=== PATIENT | male | born 1955 | race Caucasian/White ===

== ENCOUNTER 2018-03-21 14:20 | Observation (INO) | payer OTHER ==
[~2018-03-21] VITALS: Ht 154.9 cm; Wt 133.8 kg
[2018-03-21] MEDS ORDERED: EPINEPHRINE 0.3 MG/0.3 ML PEN.INJCTR IM STA (14:32)
[2018-03-21] MEDS ORDERED: FAMOTIDINE 20 MG/2 ML VIAL IV STA (14:32)
[2018-03-21] MEDS ORDERED: METHYLPREDNISOLONE SOD SUCC 125 MG/2ML VIAL ONE (14:36)
[2018-03-21] MEDS ORDERED: DIPHENHYDRAMINE HCL INJ 50 MG/ML VIAL ONE (14:36)
[2018-03-21] MEDS ORDERED: FAMOTIDINE 20 MG/2 ML VIAL IV ONE (14:37)
[2018-03-21 14:43] LABS: BASOPHILS % 0.4 % (0.0-1.0); EOSINOPHILS % 0.8 % (0.0-6.0); HEMATOCRIT 52.6 % (38.2-49.6); HEMOGLOBIN 18.3 g/dL (14.0-18.0); LYMPHOCYTES # (AUTO) 2.4 (1.0-3.2); LYMPHOCYTES % 47.3 % (18.0-39.1); MEAN CORPUSCULAR HEMOGLOBIN 31.1 pg (28-32); MEAN CORPUSCULAR HGB CONC 34.8 g/dL (31-35); MEAN CORPUSCULAR VOLUME 89.3 fL (81-99); MONOCYTES # (AUTO) 0.2 (0.2-0.8); MONOCYTES % 4.8 % (4.4-11.3); NEUTROPHILS # (AUTO) 2.3 (2.1-6.9); NEUTROPHILS % 45.7 % (38.7-80.0); PLATELET COUNT 179 x10e3/uL (140-360); RED BLOOD COUNT 5.89 x10e6/uL (4.3-5.7); RED CELL DISTRIBUTION WIDTH 13.3 % (11.7-14.4)
[2018-03-21] MEDS ORDERED: METHYLPREDNISOLONE SOD SUCC 125 MG/2ML VIAL IV ONE (14:45)
[2018-03-21] MEDS ORDERED: DIPHENHYDRAMINE HCL INJ 50 MG/ML VIAL IV ONE (14:45)
[2018-03-21 14:55] LABS: INR 0.89; PARTIAL THROMBOPLASTIN TIME 26.9 seconds (23.8-35.5); PROTHROMBIN TIME 12.9 seconds (11.9-14.5)
[2018-03-21 15:02] LABS: ALANINE AMINOTRANSFERASE 41 IU/L (0-55); ALBUMIN 3.8 g/dL (3.5-5.0); ALBUMIN/GLOBULIN RATIO 1.3 (0.8-2.0); ALKALINE PHOSPHATASE 55 IU/L (40-150); ANION GAP 14.3 mmol/L (8-16); BLOOD UREA NITROGEN 17 mg/dL (7-26); BUN/CREATININE RATIO 15 (6-25); CALCIUM 9.8 mg/dL (8.4-10.2); CARBON DIOXIDE 23 mmol/L (22-29); CHLORIDE 104 mmol/L (98-107); CREATINE KINASE 75 IU/L (30-200); CREATININE, SERUM 1.16 mg/dL (0.72-1.25); EST GLOMERULAR FILTRATION RATE > 60 ML/MIN (60-); GLUCOSE 133 mg/dL (74-118); POTASSIUM 4.3 mmol/L (3.5-5.1); SODIUM 137 mmol/L (136-145)
[2018-03-21] MEDS: ALBUTEROL/IPRATROPIUM 3 ML NEB NEB SCH ×3 (15:13→23:30)
[2018-03-21] MEDS ORDERED: ASPIRIN 81 MG CHEW TAB PO ONE (15:15)
--- NOTE | 2018-03-21 15:45 | Diagnostic Imaging Report ---
EXAM: XR CHEST 1 VIEW DATE: 03/21/2018 2:31 PM INDICATION: Pain COMPARISON: None FINDINGS: Lines and Tubes: None Heart and Mediastinum: Heart upper limits of normal. Right peritracheal density statistically confluent vascular structures. Lungs and Pleura: No significant pleural effusion, pneumothorax, or focal consolidation. Minimal opacities lung bases suggest atelectasis. Bones and Soft Tissues: No acute findings. IMPRESSION: 1. No acute cardiopulmonary findings. Signed by: Dr. Chucky Elias MD on 03/21/2018 3:42 PM
[2018-03-21] MEDS ORDERED: HUMALOG100 UNIT/1 SQ (18:34)
[2018-03-21] MEDS ORDERED: PRAVASTATIN SOD40 MG PO (18:34)
[2018-03-21] MEDS ORDERED: TAMSULOSIN HCL0.4 MG PO (18:34)
[2018-03-21] MEDS ORDERED: CARVEDILOL25 MG PO (18:34)
[2018-03-21] MEDS ORDERED: METFORMIN HCL1000 MG PO (18:34)
[2018-03-21] MEDS ORDERED: ELIQUIS PO (18:34)
[2018-03-21] MEDS ORDERED: DIOVAN160 MG PO (18:34)
[2018-03-21] MEDS ORDERED: POTASSIUM CITR10 MEQ PO (18:34)
[2018-03-21] MEDS ORDERED: LANTUS 3ML100 UNITS/ SQ (18:34)
[2018-03-21] MEDS ORDERED: TRULICITY SQ (18:34)
[2018-03-21 19:59] VITALS: BP 133/92
[2018-03-21] MEDS ORDERED: CARVEDILOL 12.5 MG TAB ONE (22:25)
[2018-03-21] MEDS: CARVEDILOL 12.5 MG TAB PO SCH (22:30)
[2018-03-21] MEDS ORDERED: NON-FORMULARY MEDICATION ([Trulicity] 1.5 MG) SQ SCH (22:30)
[2018-03-21] MEDS ORDERED: METFORMIN HCL 500 MG TAB PO ONE (23:45)
[2018-03-22] VITALS: BP 112/68
[2018-03-22 00:21] LABS: CLARITY,URINE CLEAR (CLEAR); COLOR,URINE YELLOW (YELLOW); KETONES,URINE 1+ (NEGATIVE); LEUKOCYTE ESTERASE ,URINE NEGATIVE (NEGATIVE); NITRITE,URINE NEGATIVE (NEGATIVE); PROTEIN,URINE DIPSTICK 1+ (NEGATIVE)
[2018-03-22 00:22] LABS: BACTERIA,URINE RARE /HPF; BILIRUBIN,URINE NEGATIVE (NEGATIVE); EPITHELIAL CELLS,URINE RARE /LPF; MUCUS,URINE FEW (RARE); RBC,URINE 0-5 /HPF (0-5); URINE UROBILINOGEN 0.2 mg/dL (0.2 - 1); WBC,URINE (MAN) 0-5 /HPF (0-5)
[2018-03-22 00:59] VITALS: BP 112/68
[2018-03-22 01:00] VITALS: BP 112/68
[2018-03-22 01:02] VITALS: BP 112/68
[2018-03-22 01:28] LABS: CREATINE KINASE 58 IU/L (30-200)
[2018-03-22] MEDS: ALBUTEROL/IPRATROPIUM 3 ML NEB NEB SCH ×2 (03:15→07:58)
[2018-03-22 05:44] LABS: ALBUMIN 3.2 g/dL (3.5-5.0); ALBUMIN/GLOBULIN RATIO 1.2 (0.8-2.0); ANION GAP 17.7 mmol/L (8-16); CREATININE, SERUM 1.23 mg/dL (0.72-1.25); POTASSIUM 4.7 mmol/L (3.5-5.1)
[2018-03-22 06:01] LABS: CREATINE KINASE 68 IU/L (30-200)
[2018-03-22 07:05] LABS: BASOPHILS % 0.2 % (0.0-1.0); HEMATOCRIT 46.3 % (38.2-49.6); HEMOGLOBIN 15.9 g/dL (14.0-18.0); LYMPHOCYTES # (AUTO) 1.8 (1.0-3.2); LYMPHOCYTES % 15.1 % (18.0-39.1); MEAN CORPUSCULAR HEMOGLOBIN 31.2 pg (28-32); MEAN CORPUSCULAR HGB CONC 34.3 g/dL (31-35); MEAN CORPUSCULAR VOLUME 90.8 fL (81-99); MONOCYTES # (AUTO) 0.7 (0.2-0.8); MONOCYTES % 5.8 % (4.4-11.3); NEUTROPHILS # (AUTO) 9.4 (2.1-6.9); NEUTROPHILS % 78.5 % (38.7-80.0); PLATELET COUNT 157 x10e3/uL (140-360); RED CELL DISTRIBUTION WIDTH 13.2 % (11.7-14.4)
[2018-03-22 07:53] VITALS: BP 130/68
[2018-03-22] MEDS ORDERED: METFORMIN HCL 500 MG TAB PO SCH (08:00)
[2018-03-22] MEDS ORDERED: INSULIN LISPRO 100 UNIT/1 ML 3ML VIAL SQ SCH (08:00)
[2018-03-22] MEDS: CARVEDILOL 12.5 MG TAB PO SCH (08:34)
[2018-03-22] MEDS ORDERED: TAMSULOSIN HCL 0.4 MG CAP PO SCH (09:00)
[2018-03-22] MEDS ORDERED: ELIQUIS PO SCH (09:00)
[2018-03-22] MEDS ORDERED: POTASSIUM CITRATE 10 MEQ TAB PO SCH (09:00)
[2018-03-22] MEDS ORDERED: VALSARTAN 160 MG TAB PO SCH (09:00)
--- NOTE | 2018-03-22 10:49 | Discharge Summary ---
The patient was in observation. FINAL DIAGNOSES 1. Allergic reaction to bee sting. 2. Chest pain and shortness breath secondary to allergic reaction. HISTORY: A 62-year-old male came in because he was bitten by bees when he was putting some pollen in the bee hive area. The patient was bitten approximately 20-30 times. After that, he tried to run away from the bees, and the bees chased the patient down. He then developed shortness of breath and chest pain. He was given multiple medications in the emergency room. He is doing much better now. Cardiac enzymes are negative. Chest x-ray unremarkable. The patient will discharge home today with prednisone 5 mg daily for 5 days. The patient will follow up with his family doctor, Dr. Esther Hampton as needed. The patient is otherwise stable and discharged home today. Job#: [id number] YESICA
[2018-03-22] MEDS ORDERED: INSULIN DETEMIR 100 UNIT/ML PEN SQ SCH (21:00)
[2018-03-22] MEDS ORDERED: PRAVASTATIN 20 MG TAB PO SCH (21:00)
--- OUTSIDE RECORDS SUMMARY | 2018-03-27 12:41 | XMS REPORT ---
Author Author Zay Spence Organization eClinicalWorks Address Unknown Phone Unavailable Care Team Providers Care Corn Picker Name Role Phone Zay Spence CP Unavailable Encounters Encounter Location Date Follow-Up Zay Spence [place], [place] Jun 10, 2015 Follow-Up Zay Sp[place], [place] December 02, 2015 refill Zay Spence [place], [place] December 21, 2015 Problems Problem Type Condition ICD-9 Code Onset Dates Condition Status Problem Benign hypertensive heart disease without heart failure 402.10 Active Problem Atrial flutter 427.32 Active Problem Morbid obesity 278.01 Active Problem Diabetes mellitus type II 250.00 Active Problem Mixed hyperlipidemia 272.2 Active Problem Typical atrial flutter I48.3 Active Problem Hypertensive heart disease without heart failure I11.9 Active 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 Are you a: former smoker quit in 2002December 03, 2015 Marital Status: . December 03, 2015 Do you drink alcohol? . Status: Yes moderately/weekends December 03, 2015 Summary Purpose eClinicalWorks Submission
--- OUTSIDE RECORDS SUMMARY | 2018-03-27 12:41 | XMS REPORT ---
Author Author Zay Spence [facility] eClinicalWorks Address Unknown Phone Unavailable Care Team Providers Care Copy Operator Name Role Phone Zay Spence Unavailable Allergies, Adverse Reactions, Alerts Substance Reaction Event Type Lyrica Info Not Available Drug Allergy Problems Problem Type Condition Code Onset Dates Condition Status Problem Mixed hyperlipidemia 272.2 Active Assessment Body mass index (BMI) 40.0-44.9, adult Z68.41 Active Problem Diabetes mellitus type II 250.00 Active Assessment Morbid (severe) obesity due to excess calories E66.01 Active Problem Typical atrial flutter I48.3 Active Problem Mixed hyperlipidemia E78.2 Active Problem Hypertensive heart disease without heart failure I11.9 Active Problem Gross hematuria R31.0 Active Problem Body mass index (BMI) 40.0-44.9, adult Z68.41 Active Assessment Mixed hyperlipidemia E78.2 Active Assessment Type 2 diabetes mellitus with diabetic peripheral angiopathy without gangrene E11.51 Active Problem Dyspnea, unspecified R06.00 Active Assessment Gross hematuria R31.0 Active Problem Type 2 diabetes mellitus with diabetic peripheral angiopathy without gangrene E11.51 Active Problem Morbid (severe) obesity due to excess calories E66.01 Active Problem [facility] (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 Z79.01 Active Problem Peripheral vascular disease, unspecified I73.9 Active Assessment Hypertensive heart disease without heart failure I11.9 Active Assessment Typical atrial flutter I48.3 Active 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 Assessment Peripheral vascular disease, unspecified I73.9 Active Problem Benign hypertensive heart disease without heart failure 402.10 Active Problem Morbid obesity 278.01 Active Assessment Dyspnea, unspecified R06.00 Active Problem Atrial flutter 427.32 Active Medications Medication Code System Code Instructions Start Date End Date Status Dosage Carvedilol [facility] 20163520849 25 MG Orally twice a day (bid) Active 1 tablet Valsartan [facility] 64923925231 160 MG Orally once a day Active 1 tablet Fluticasone Propionate (Inhal) [facility] [address]-70 50 MCG/BLIST Inhalation Twice a day Active 1 puff Lantus [facility] 96794184791 100 UNIT/ML Subcutaneous Active not defined Metformin HCl [facility] 88767413325 1000 MG Orally Twice a day Active 1 tablet Pravastatin Sodium [facility] 80175322971 40 MG Orally Once a day Active 1 tablet Trulicity [facility] 31370342744 0.75 MG/0.5ML Subcutaneous Active 0.5 ml Humalog [facility] 58851876767 100 UNIT/ML Subcutaneous Active not defined Potassium Citrate NDC 0 5 MEQ Orally Active not defined Eliquis [facility] 10404523500 2.5 MG Orally twice a day (bid) Active 1 tablet Tamsulosin HCl [facility] 44293945210 0.4 MG Orally Once a day Active 1 capsule 30 minutes after the same meal each day Vital Signs Date/Time: Aug 09, 2017 BMI 40.02 Index Weight 287 lbs Height 5ft 11in in Cardiac Monitoring Heart Rate 82 /min Blood Pressure Diastolic 80 mm Hg Blood Pressure Systolic 118 mm Hg Results No Known Results Summary Purpose eClinicalWorks Submission
--- OUTSIDE RECORDS SUMMARY | 2018-03-27 12:41 | XMS REPORT ---
Author Author Zay Spence [facility] eClinicalWorks Address Unknown Phone Unavailable Care Team Providers Care Tube Teller Name Role Phone Zay Spence CP Unavailable Allergies No Known Allergies Problems Problem Type Condition Code Onset Dates Condition Status Problem Typical atrial flutter I48.3 Active Problem Mixed hyperlipidemia E78.2 Active Problem Hypertensive heart disease without heart failure I11.9 Active Problem Gross hematuria R31.0 Active Problem Body mass index (BMI) 40.0-44.9, adult Z68.41 Active Problem Dyspnea, unspecified R06.00 Active Problem Type 2 diabetes mellitus with diabetic peripheral angiopathy without gangrene E11.51 Active Problem Morbid (severe) obesity due to excess calories E66.01 Active Problem 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 nursing (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 Z79.01 Active Problem Peripheral vascular disease, unspecified I73.9 Active Problem Benign hypertensive heart disease without heart failure 402.10 Active Problem Morbid obesity 278.01 Active Problem Mixed hyperlipidemia 272.2 Active Problem Atrial flutter 427.32 Active Problem Diabetes mellitus type II 250.00 Active Medications Medication Code System Code Instructions Start Date End Date Status Dosage Metformin HCl [facility] 71520326888 1000 MG Orally Twice a day Active 1 tablet Tamsulosin HCl [facility] 95370443878 0.4 MG Orally Once a day Active 1 capsule 30 minutes after the same meal each day Potassium Citrate NDC 0 5 MEQ Orally Active not defined Trulicity [facility] 24807570866 0.75 MG/0.5ML Subcutaneous Active 0.5 ml Carvedilol ND 31856290894 25 MG Orally twice a day (bid) Active 1 tablet Pravastatin Sodium ND 69385253770 40 MG Orally Once a day Active 1 tablet Humalog [facility] 64894988012 100 UNIT/ML Subcutaneous Active not defined Lantus ND 66010275416 100 UNIT/ML Subcutaneous Active not defined Fluticasone Propionate (Inhal) [facility] [address]-82 50 MCG/BLIST Inhalation Twice a day Active 1 puff Eliquis [facility] 47296022060 2.5 MG Orally twice a day (bid) Active 1 tablet Valsartan [facility] 44499611502 160 MG Orally once a day Active 1 tablet Results No Known Results Summary Purpose eClinicalWorks Submission
--- OUTSIDE RECORDS SUMMARY | 2018-03-27 12:41 | XMS REPORT ---
Author Author Zay Spence [facility] eClinicalWorks Address Unknown Phone Unavailable Care Team Providers Care Sucker Machine Operator Name Role Phone Zay Spence Unavailable Allergies, Adverse Reactions, Alerts Substance Reaction Event Type Lyrica Info Not Available Drug Allergy Problems Problem Type Condition Code Onset Dates Condition Status Problem Atrial flutter 427.32 Active Problem Mixed hyperlipidemia E78.2 Active Problem Morbid (severe) obesity due to excess calories E66.01 Active Problem Body mass index (BMI) 40.0-44.9, adult Z68.41 Active Assessment Gross hematuria R31.0 Active Problem 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 Z79.01 Active Assessment Morbid (severe) obesity due to excess calories E66.01 Active Assessment Body mass index (BMI) 40.0-44.9, adult Z68.41 Active Problem Gross hematuria R31.0 Active Problem Peripheral vascular disease, unspecified I73.9 Active Problem Type 2 diabetes mellitus with diabetic peripheral angiopathy without gangrene E11.51 Active Problem Typical atrial flutter I48.3 Active Problem Hypertensive heart disease without heart failure I11.9 Active Assessment 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 Z79.01 Active Assessment Peripheral vascular disease, unspecified I73.9 Active Assessment Type 2 diabetes mellitus with diabetic peripheral angiopathy without gangrene E11.51 Active Assessment Mixed hyperlipidemia E78.2 Active Problem Diabetes mellitus type II 250.00 Active Problem Mixed hyperlipidemia 272.2 Active Assessment Hypertensive heart disease without heart failure I11.9 Active Problem Benign hypertensive heart disease without heart failure 402.10 Active Assessment Typical atrial flutter I48.3 Active Problem Morbid obesity 278.01 Active Medications Medication Code System Code Instructions Start Date End Date Status Dosage Pravastatin Sodium [facility] [address]-58 40 MG Orally Once a day Active 1 tablet Carvedilol [facility] [address]-44 25 MG Orally twice a day (bid) Active 1 tablet Fluticasone Propionate (Inhal) [facility] [address]-86 50 MCG/BLIST Inhalation Twice a day Active 1 puff Valsartan [facility] [address]-00 160 MG Orally once a day Active 1 tablet Tamsulosin HCl [facility] [address]-94 0.4 MG Orally Once a day Active 1 capsule 30 minutes after the same meal each day Eliquis [facility] [address]-78 5 MG Orally twice a day (bid) Active 1/2 half tablet Farxiga [facility] [address]-07 5 MG Orally Once a day Active 1 tablet Potassium Citrate [facility] 0 5 MEQ Orally Active not defined Humalog [facility] [address]-54 100 UNIT/ML Subcutaneous Active not defined Lantus [facility] [address]-09 100 UNIT/ML Subcutaneous Active not defined Digoxin [facility] [address]-09 125 MCG Orally Once a day November 29, 2016 Inactive 1 tablet Metformin HCl [facility] [address]-72 1000 MG Orally Twice a day Active 1 tablet Trulicity [facility] [address]-35 0.75 MG/0.5ML Subcutaneous Active 0.5 ml Vital Signs Date/Time: November 29, 2016 BMI 40.68 Index Weight 300 lbs Height 6ft in Cardiac Monitoring Heart Rate 76 /min Blood Pressure Diastolic 60 mm Hg Blood Pressure Systolic 110 mm Hg Results No Known Results Summary Purpose eClinicalWorks Submission
--- OUTSIDE RECORDS SUMMARY | 2018-03-27 12:41 | XMS REPORT | Continuity of Care Document ---
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 Active Problem 08/11/2017 Zay Spence MD, LEANN Gross hematuria Active Problem 08/11/2017 Zay Spence MD, LEANN Morbid obesity due to excess calories Active Diagnosis 08/11/2017 Zay Spence MD, [place] Mixed hyperlipidemia Active Problem 08/11/2017 Zay Spence MD, LEANN Peripheral vascular disease, unspecified Active Problem 08/11/2017 Zay Spence MD, LEANN Type 2 diabetes mellitus with diabetic peripheral angiopathy without gangrene Active Diagnosis 08/11/2017 Zay Spence MD, [place] Atrial flutter Active Problem 08/11/2017 Zay Spence MD, LEANN Benign hypertensive heart disease without heart failure Active Problem 08/11/2017 Zay Spence MD, LEANN Morbid obesity Active Problem 08/11/2017 Zay Spence MD, PA Mixed hyperlipidemia Active Problem 08/11/2017 Zay Spence MD, LEANN Dyspnea, unspecified Active Problem 08/11/2017 Zay Spence MD, PA Medications Medication Details Route Status Patient Instructions Ordering Provider Order Date Source Digoxin 1 tablet Orally Active 125 MCG Orally Once a day Bebe 11/29/2016 Zay Spence MD, PA Amiodarone HCl 1 tablet Orally No Longer Active 100 MG Orally Once a day Bebe 06/10/2015 Zay Spence MD, PA Eliquis 1 tablet Orally Active 2.5 MG Orally twice a day (bid) Bebe Spence MD, LEANN Metformin HCl 1 tablet Orally Active 1000 MG Orally Twice a day Bebe Spence MD, LEANN Tamsulosin HCl 1 capsule 30 minutes after the same meal each day Orally Active 0.4 MG Orally Once a day Bebe Spence MD, LEANN Potassium Citrate not defined Orally Active 5 MEQ Orally Bebe Spence MD, LEANN Trulicity 0.5 ml Subcutaneous Active 0.75 MG/0.5ML Subcutaneous Bebe Spence MD, LEANN Carvedilol 1 tablet Orally Active 25 MG Orally twice a day (bid) Bebe Spence MD, PA Pravastatin Sodium 1 tablet Orally Active 40 MG Orally Once a day Bebe Spence MD, LEANN Humalog not defined Subcutaneous Active 100 UNIT/ML Subcutaneous Bebe Spence MD, LEANN Lantus not defined Subcutaneous Active 100 UNIT/ML Subcutaneous Bebe Spence MD, LEANN Fluticasone Propionate (Inhal) 1 puff Inhalation Active 50 MCG/BLIST Inhalation Twice a day Bebe Spence MD, PA Valsartan 1 tablet Orally Active 160 MG Orally once a day Bebe Spence MD, PA Pravastatin Sodium 1 tablet Orally Active 40 MG Orally Once a day Bebe Spence MD, PA Carvedilol 1 tablet Orally Active 25 MG Orally twice a day (bid) Bebe Spence MD, PA Valsartan 1 tablet Orally Active 160 MG Orally once a day Bebe Spence MD, LEANN Tamsulosin HCl 1 capsule 30 minutes after the same meal each day Orally Active 0.4 MG Orally Once a day Bebe Spence MD, PA Eliquis 1/2 half tablet Orally Active 5 MG Orally twice a day (bid) Bebe Spence MD, PA Farxiga 1 tablet Orally Active 5 MG Orally Once a day Bebe Spence MD, LEANN Humalog not defined Subcutaneous Active 100 UNIT/ML Subcutaneous Bebe Spence MD, PA Lantus not defined Subcutaneous Active 100 UNIT/ML Subcutaneous Bebe Spence MD, LEANN Metformin HCl 1 tablet Orally Active 1000 MG Orally Twice a day Bebe Spence MD, PA Trulicity 0.5 ml Subcutaneous Active 0.75 MG/0.5ML Subcutaneous Bebe Spence MD, PA Coreg 1 tablet with food Orally Active 12.5 MG Orally Twice a day Bebe Spence MD, PA Digoxin 1 tablet Orally Active 125 MCG Orally Once a day Bebe Spence MD, LEANN Valsartan 1 tablet Orally Active 160 MG Orally Once a day Bebe Spence MD, LEANN Amlodipine Besylate 1 tablet NA Active 5 MG Once a day Bebe Spence MD, PA Digoxin 1 tablet NA Active 0.125MG Once a day Bebe Spence MD, PA Metformin HCl 1 tablet Orally Active 500 MG Orally Twice a day Bebe Spence MD, LEANN Potassium Citrate Unknown Orally Active 5 MEQ Orally Bebe Spence MD, PA Allergies, Adverse Reactions, Alerts Substance Category Reaction Severity Reaction type Status Date Reported Comments Source Lyrica Adverse Reaction Info Not Available Adverse Reaction Active 08/09/2017 Zay Spence MD, LEANN Immunizations Immunization Date Given Site Status Last Updated Comments Source Results Order Name Results Value Reference Range Date Interpretation Comments Source Vital Signs Vital Sign Value Date Comments Source Weight 287 08/09/2017 Zay Spence MD, [place] Heart Rate 82 08/09/2017 Zay Spence MD, PA Diastolic (mm Hg) 80 08/09/2017 Zay Spence MD, PA Systolic (mm Hg) 118 08/09/2017 Zay Spence MD, PA Weight 310 06/08/2017 Zay Spence MD, PA Heart Rate 75 06/08/2017 Zay Spence MD, PA Diastolic (mm Hg) 78 06/08/2017 Zay Spence MD, PA Systolic (mm Hg) 118 06/08/2017 Zay Spence MD, PA Weight 300 11/29/2016 Zay Spence MD, PA Heart Rate 76 11/29/2016 Zay Spence MD, PA Diastolic (mm Hg) 60 11/29/2016 Zay Spence MD, PA Systolic (mm Hg) 110 11/29/2016 Zay Spence MD, PA Weight 295 06/02/2016 Zay Spence MD, PA Heart Rate 74 06/02/2016 Zay Sepnce MD, LEANN Diastolic (mm Hg) 90 06/02/2016 Zay Spence MD, PA Systolic (mm Hg) 145 06/02/2016 Zay Spence MD, PA Weight 300 12/02/2015 Zay Spence MD, PA Heart Rate 103 12/02/2015 Zay Spence MD, PA Diastolic (mm Hg) 90 12/02/2015 aZy Spence MD, PA Systolic (mm Hg) 150 12/02/2015 Zay Spence MD, PA Weight 297 06/10/2015 Zay Spence MD, PA Heart Rate 77 06/10/2015 Zay Spence MD, PA Diastolic (mm Hg) 70 06/10/2015 Zay Spence MD, PA Systolic (mm Hg) 139 06/10/2015 Zay Spence MD, PA Encounters Location Location Details Encounter Type Encounter Number Reason For Visit Attending Provider ADM Date DC Date Status Source Zay Spence MD, PA Follow-Up [id number] 06/10/2015 06/10/2015 Zay Spence MD, PA Zay Spence MD, PA Follow-Up [id number] 06/10/2015 06/10/2015 Zay Spence MD, PA Zay Spence MD, PA Follow-Up [id number] 06/10/2015 06/10/2015 Zay Spence MD, PA Zay Spence MD, PA Follow-Up [id number] 06/10/2015 06/10/2015 Zay Spence MD, PA Zay Spence MD, PA Follow-Up [id number] 06/10/2015 06/10/2015 Zay Spence MD, PA Zay Spence MD, PA Follow-Up [id number] 06/10/2015 06/10/2015 Zay Spence MD, PA Zay Spence MD, PA Follow-Up [id number] 12/02/2015 12/02/2015 Zay Spence MD, PA Zay Spence MD, PA Follow-Up [id number] 12/02/2015 12/02/2015 Zay Spenec MD, PA Zay Spence MD, PA Follow-Up [id number] 12/02/2015 12/02/2015 Zay Spence MD, PA Zay Spence MD, PA Follow-Up [id number] 12/02/2015 12/02/2015 Zay Spence MD, PA Zay Spence MD, PA Follow-Up [id number] 12/02/2015 12/02/2015 Zay Spence MD, PA Zay Spence MD, PA refill [id number] 12/21/2015 12/21/2015 Zay Spence MD, PA Zay Spence MD, PA refill [id number] 12/21/2015 12/21/2015 Zay Spence MD, PA Zay Spence MD, PA refill [id number] 12/21/2015 12/21/2015 Zay Spence MD, PA Zay Spence MD, PA refill [id number] 12/21/2015 12/21/2015 Zay Spence MD, PA Zay Spence MD, PA hematuria [id number] 01/19/2016 01/19/2016 Zay Spence MD, PA Zay Spence MD, PA hematuria [id number] 01/19/2016 01/19/2016 Zay Spence MD, PA Zay Spence MD, PA hematuria [id number] 01/19/2016 01/19/2016 Zay Spence MD, PA Zay Spence MD, PA Follow-Up [id number] 06/02/2016 06/02/2016 Zay Spence MD, PA Zay Spence MD, PA Follow-Up [id number] 06/02/2016 06/02/2016 Zay Spence MD, PA Zay Spence MD, PA echo/carotid/arterial dopplers [id number] 06/07/2016 06/07/2016 Zay Spence MD, PA Procedures Procedure Code Date Perfomer Comments Source
--- OUTSIDE RECORDS SUMMARY | 2018-03-27 12:41 | XMS REPORT ---
Author Author Zay Spence Organization eClinicalWorks Address Unknown Phone Unavailable Care Team Providers Care Refuse Collector Name Role Phone Zay Spence CP Unavailable Encounters Encounter Location Date hematuria Zay Spence MD, PA Jan 19, 2016 Follow-Up Zay Spence MD, PA Jun 10, [...] disease without heart failure I11.9 Active Problem [facility] (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 Z79.01 Active Problem Mixed hyperlipidemia E78.2 Active Problem Morbid (severe) obesity due to excess calories E66.01 Active Problem Peripheral vascular disease, unspecified I73.9 Active Problem Type 2 diabetes mellitus with diabetic peripheral angiopathy without gangrene E11.51 Active Social History Social History Element Qualifiers Date Reported Tobacco Use: . Are you a: former smoker quit in 2002December 03, 2015 Marital Status: . December 03, 2015 Do you drink alcohol? . Status: Yes moderately/weekends December 03, 2015 Summary Purpose eClinicalWorks Submission
--- OUTSIDE RECORDS SUMMARY | 2018-03-27 12:41 | XMS REPORT ---
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 Assessment Peripheral vascular disease, unspecified I73.9 Active Problem Benign hypertensive heart disease without heart failure 402.10 Active Problem Morbid obesity 278.01 Active Assessment Dyspnea, unspecified R06.00 Active Problem Atrial flutter 427.32 Active Medications Medication Code System Code Instructions Start Date End Date Status Dosage Carvedilol [facility] 93485683302 25 MG Orally twice a day (bid) Active 1 tablet Metformin HCl [facility] 04176363200 1000 MG Orally Twice a day Active 1 tablet Lantus [facility] 18241859477 100 UNIT/ML Subcutaneous Active not defined Humalog [facility] 08612625312 100 UNIT/ML Subcutaneous Active not defined Tamsulosin HCl [facility] 87822750286 0.4 MG Orally Once a day Active 1 capsule 30 minutes after the same meal each day Pravastatin Sodium [facility] 43650561149 40 MG Orally Once a day Active 1 tablet Potassium Citrate ND 0 5 MEQ Orally Active not defined Trulicity [facility] 33499299316 0.75 MG/0.5ML Subcutaneous Active 0.5 ml Fluticasone Propionate (Inhal) [facility] [address]-00 50 MCG/BLIST Inhalation Twice a day Active 1 puff Eliquis [facility] 98582902842 2.5 MG Orally twice a day (bid) Active 1 tablet Valsartan [facility] 07514863489 160 MG Orally once a day Active 1 tablet Vital Signs Date/Time: Jun 08, 2017 BMI 44.48 Index Weight 310 lbs Height 5ft 10in in Cardiac Monitoring Heart Rate 75 /min Blood Pressure Diastolic 78 mm Hg Blood Pressure Systolic 118 mm Hg Results No Known Results Summary Purpose eClinicalWorks Submission
--- OUTSIDE RECORDS SUMMARY | 2018-03-27 12:41 | XMS REPORT ---
Author Author Zay Spence [facility] eClinicalWorks Address Unknown Phone Unavailable Care Team Providers Care Psychiatric Registered Nurse Name Role Phone Zay Spence CP Unavailable Allergies No Known Allergies Problems Problem Type Condition Code Onset Dates Condition Status Problem Diabetes mellitus type II 250.00 Active Problem Hypertensive heart disease without heart failure I11.9 Active Problem Typical atrial flutter I48.3 Active Problem Body mass index (BMI) 40.0-44.9, adult Z68.41 Active Problem watermaster (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 Z79.01 Active Problem Gross hematuria R31.0 Active Problem Morbid (severe) obesity due to excess calories E66.01 Active Problem Mixed hyperlipidemia E78.2 Active Problem Peripheral vascular disease, unspecified I73.9 Active Problem Type 2 diabetes mellitus with diabetic peripheral angiopathy without gangrene E11.51 Active Problem Atrial flutter 427.32 Active Problem Benign hypertensive heart disease without heart failure 402.10 Active Problem Morbid obesity 278.01 Active Problem Mixed hyperlipidemia 272.2 Active Medications Medication Code System Code Instructions Start Date End Date Status Dosage Eliquis [facility] 27519882205 2.5 MG Orally twice a day (bid) Active 1 tablet Results No Known Results Summary Purpose eClinicalWorks Submission
--- OUTSIDE RECORDS SUMMARY | 2018-03-27 12:41 | XMS REPORT ---
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
--- OUTSIDE RECORDS SUMMARY | 2018-03-27 12:41 | XMS REPORT ---
Author Author Zay Spence [facility] eClinicalWorks Address Unknown Phone Unavailable Care Team Providers Care Teacher Aide Clerical Name Role Phone Zay Spence Unavailable Allergies, Adverse Reactions, Alerts Substance Reaction Event Type Lyrica Info Not Available Drug Allergy Encounters Encounter Location Date [place] Jun 10, 2015 [place]Up Z[place] December 02, 2015 Problems Problem Type Condition ICD-9 Code Onset Dates Condition Status Problem Benign hypertensive heart disease without heart failure 402.10 Active Problem Atrial flutter 427.32 Active Problem Morbid obesity 278.01 Active Problem Typical atrial flutter I48.3 Active Problem Hypertensive heart disease without heart failure I11.9 Active Problem 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 Z79.01 Active Problem Mixed hyperlipidemia E78.2 Active Problem Morbid (severe) obesity due to excess calories E66.01 Active Problem Peripheral vascular disease, unspecified I73.9 Active Problem Type 2 diabetes mellitus with diabetic peripheral angiopathy without gangrene E11.51 Active Assessment Type 2 diabetes mellitus with diabetic peripheral angiopathy without gangrene E11.51 Active Assessment Mixed hyperlipidemia E78.2 Active Assessment Morbid (severe) obesity due to excess calories E66.01 Active Assessment Hypertensive heart disease without heart failure I11.9 Active Assessment Typical atrial flutter I48.3 Active Assessment 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 Z79.01 Active Problem Diabetes mellitus type II 250.00 Active Assessment Peripheral vascular disease, unspecified I73.9 Active Problem Mixed hyperlipidemia 272.2 Active Medications Medication Code System Code Instructions Start Date End Date Status Dosage Valsartan [facility] [address]-11 160 MG Orally twice a day (bid) Active 1 tablet Eliquis [facility] [address]-88 5 MG Orally twice a day (bid) Active 1 tablet Metformin HCl [facility] [address]-82 1000 mg Orally Twice a day Active 1 [facility] [address]-10 100 UNIT/ML Subcutaneous Active Unknown Farxiga [facility] [address]-75 5 MG Orally Once a day Active 1 tablet Carvedilol [facility] [address]-94 25 MG Orally twice a day (bid) Active 1 tablet Amlodipine Besylate [facility] [address]-20 5 MG Once a day Active 1 tablet Pravastatin Sodium [facility] [address]-74 40 MG Orally Once a day Active 1 tablet Digoxin [facility] [address]-79 0.125MG Once a day Active 1 tablet Lantus [facility] [address]-55 100 UNIT/ML Subcutaneous Active Unknown Tamsulosin HCl [facility] [address]-27 0.4 MG Orally Once a day Active 1 capsule 30 minutes after the same meal each day Trulicity [facility] [address]-44 0.75 MG/0.5ML Subcutaneous Active 0.5 ml Social History Social History Element Qualifiers Date Reported Tobacco Use: . Are you a: former smoker quit in 2002December 03, 2015 Marital Status: . December 03, 2015 Do you drink alcohol? . Status: Yes moderately/weekends December 03, 2015 Vital Signs Date/Time: December 02, 2015 Weight 300 lbs Cardiac Monitoring Heart Rate 103 /min Blood Pressure Diastolic 90 mm Hg Blood Pressure Systolic 150 mm Hg Summary Purpose eClinicalWorks Submission
--- OUTSIDE RECORDS SUMMARY | 2018-03-27 12:41 | XMS REPORT ---
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 Are you a: former smoker quit in 2002Jun 02, 2016 Marital Status: . Jun 02, 2016 Do you drink alcohol? . Status: Yes moderately/weekends Jun 02, 2016 Summary Purpose eClinicalWorks Submission
--- OUTSIDE RECORDS SUMMARY | 2018-03-27 12:41 | XMS REPORT ---
Author Author Zay Spence [facility] eClinicalWorks Address Unknown Phone Unavailable Care Team Providers Care Quencher Operator Name Role Phone Zay Spence Unavailable Allergies, Adverse Reactions, Alerts Substance Reaction Event Type Lyrica Info Not Available Drug Allergy Encounters Encounter Location Date hematuria [place] Jan 19, 2016 [place]Up Z[place] Sp[place] Jun 02, 2016 Follow-Up Z[place] Sp[place] Jun [...] disease without heart failure I11.9 Active Problem care home (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 Z79.01 Active Problem [...] Assessment Typical atrial flutter I48.3 Active Assessment care home (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 Z79.01 Active Problem Diabetes mellitus type II 250.00 Active Assessment Peripheral vascular disease, unspecified I73.9 Active Problem Mixed hyperlipidemia 272.2 Active Medications Medication Code System Code Instructions Start Date End Date Status Dosage Pravastatin S[facility] [address]-11 40 MG Orally Once a day Active 1 tablet Metformin HCl [facility] [address]-78 500 MG Orally Twice a day Active 1 tablet Potassium Citrate Unknown 0 5 MEQ Orally Active Unknown Lantus [facility] [address]-45 100 UNIT/ML Subcutaneous Active Unknown Eliquis [facility] [address]-73 5 MG Orally twice a day (bid) Active 1 tablet Valsartan [facility] [address]-76 160 MG Orally once a day Active 1 tablet Digoxin [facility] [address]-05 125 MCG Orally Once a day Active 1 tablet Trulicity [facility] [address]-39 0.75 MG/0.5ML Subcutaneous Active 0.5 ml Tamsulosin HCl [facility] [address]-20 0.4 MG Orally Once a day Active 1 capsule 30 minutes after the same meal each day Farxiga [facility] [address]-09 5 MG Orally Once a day Active 1 tablet Carvedilol [facility] [address]-46 25 MG Orally twice a day (bid) Active 1 tablet Humalog [facility] [address]-91 100 UNIT/ML Subcutaneous Active Unknown Social History Social History Element Qualifiers Date Reported Tobacco Use: . Are you a: former smoker quit in 2002Jun 02, 2016 Marital Status: . Jun 02, 2016 Do you drink alcohol? . Status: Yes moderately/weekends Jun 02, 2016 Vital Signs Date/Time: Jun 02, 2016 Weight 295 lbs Cardiac Monitoring Heart Rate 74 /min Blood Pressure Diastolic 90 mm Hg Blood Pressure Systolic 145 mm Hg Summary Purpose eClinicalWorks Submission
--- OUTSIDE RECORDS SUMMARY | 2018-03-27 12:41 | XMS REPORT ---
Author Author Zay Spence [facility] eClinicalWorks Address Unknown Phone Unavailable Care Team Providers Care Belt Sewer Name Role Phone Zay Spence Unavailable Allergies, Adverse Reactions, Alerts Substance Reaction Event Type Lyrica Info Not Available Drug Allergy Encounters Encounter Location Date Follow[place]Up [place] Jun 10, 2015 Problems Problem Type Condition ICD-9 Code Onset Dates Condition Status Problem Mixed hyperlipidemia 272.2 Active Problem Morbid obesity 278.01 Active Problem Benign hypertensive heart disease without heart failure 402.10 Active Problem Hypertensive heart disease without heart failure I11.9 Active Problem Peripheral vascular disease, unspecified I73.9 Active Problem Typical atrial flutter I48.3 Active Problem Morbid (severe) obesity due to excess calories E66.01 Active Problem Atrial flutter 427.32 Active Problem Type 2 diabetes mellitus with diabetic peripheral angiopathy without gangrene E11.51 Active Problem Mixed hyperlipidemia E78.2 Active Assessment Morbid (severe) obesity due to excess calories E66.01 Active Assessment Peripheral vascular disease, unspecified I73.9 Active Assessment Hypertensive heart disease without heart failure I11.9 Active Assessment Mixed hyperlipidemia E78.2 Active Assessment Typical atrial flutter I48.3 Active Assessment Type 2 diabetes mellitus with diabetic peripheral angiopathy without gangrene E11.51 Active Problem Diabetes mellitus type II 250.00 Active Medications Medication Code System Code Instructions Start Date End Date Status Dosage Coreg [facility] [address]-73 12.5 MG Orally Twice a day Active 1 tablet with food Amiodarone HCl [facility] [address]-92 100 MG Orally Once a day Jun 10, 2015 Inactive 1 tablet Metformin HCl [facility] [address]-12 1000 MG Orally Twice a day Active 1 tablet with meals Lantus [facility] [address]-96 100 UNIT/ML Subcutaneous Active Unknown Pravastatin Sodium [facility] [address]-88 40 MG Orally Once a day Active 1 tablet Digoxin [facility] [address]-53 0.125 MG Orally Once a day Active 1 tablet Farxiga [facility] [address]-94 5 MG Orally Once a day Active 1 tablet Tamsulosin HCl [facility] [address]-62 0.4 MG Orally Once a day Active 1 capsule 30 minutes after the same meal each day Humalog [facility] [address]-88 100 UNIT/ML Subcutaneous Active Unknown Eliquis [facility] [address]-92 5 MG Orally twice a day (bid) Active 1 tablet Valsartan [facility] [address]-25 160 MG Orally Once a day Active 1 tablet Social History Social History Element Qualifiers Date Reported Tobacco Use: . Are you a: former smoker quit in 2002Jun 10, 2015 Marital Status: . Jun 10, 2015 Do you drink alcohol? . Status: Yes moderately/weekends Jun 10, 2015 Vital Signs Date/Time: Jun 10, 2015 Weight 297 lbs Cardiac Monitoring Heart Rate 77 /min Blood Pressure Diastolic 70 mm Hg Blood Pressure Systolic 139 mm Hg Summary Purpose eClinicalWorks Submission
--- OUTSIDE RECORDS SUMMARY | 2018-03-27 12:48 | XMS REPORT | Clinical Summary ---
Author Author CRISTOBAL Finale DessertsN[facility] HospitalFash[facility] Address Unknown Phone Unavailable Care Team Providers Care Retail Salesperson Name Role Phone PCP Unavailable Allergies Active Allergy Reactions Severity Noted Date Comments Pregabalin Other (See Comments) 12/16/2016 Current Medications Prescription Sig. Disp. Refills Start End Date Status Date apixaban (ELIQUIS) 5 mg Take 2.5 mg by mouth . Active Tab tablet carvedilol (COREG) 25 MG Take 25 mg by mouth. Active tablet cholecalciferol, vitamin Take by mouth. Active D3, 4,000 unit Cap fexofenadine (ELIZABETH) Take 180 mg by mouth. Active 180 MG tablet fluticasone (FLONASE) 50 10/25/19 Active mcg/actuation nasal spray 17 cyanocobalamin 1000 MCG Take 1,000 mcg by mouth. 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
--- OUTSIDE RECORDS SUMMARY | 2018-03-27 12:49 | XMS REPORT ---
Author Author [facility] Address Unknown Phone Unavailable Care Team Providers Care Tobacco Educator Name Role Phone Brii ROSSI Unavailable Unavailable BETZAIDA TIPTON Unavailable Unavailable Problems This patient has no known problems. Allergies, Adverse Reactions, Alerts This patient has no known allergies or adverse reactions. Medications This patient has no known medications. Results Test Description Test Time Test Comments Text Results Atomic Results Result Comments CHEST SINGLE (NOT PORTABLE) 2018-03-21 15:41:00 [place] [id number] Patient Name: ALEXANDRU DONIS MR #: [id number] : 1955 Age/Sex: 62/M Req #: [id number] Adm Physician: Ordered by: AURORA ROSSI MD Report #: [id number] Location: ER Room/Bed: Procedure: [id number] DX/CHEST SINGLE (NOT PORTABLE) Exam Date: 03/21/18 Exam Time: 1515 REPORT STATUS: Signed EXAM: XR CHEST 1 VIEW DATE: 03/21/2018 2:31 PM INDICATION: Pain COMPARISON: None FINDINGS: Lines and Tubes: None Heart and Mediastinum: Heart upper limits of normal. Right peritracheal density statistically confluent vascular structures. Lungs and Pleura: No significant pleural effusion, pneumothorax, or focal consolidation. Minimal opacities lung bases suggest atelectasis. Bones and Soft Tissues: No acute findings. IMPRESSION: 1. No acute cardiopulmonary findings. Signed by: Dr. Chucky Elias MD on 03/21/2018 3:42 PM Dictated By: CHUCKY ELIAS MD 41 Transcribed By: PRISCILA on 03/21/181541 COPY TO: AURORA ROSSI MD TISSUE EXAM 2016-12-21 12:02:00 Surgical Pathology Report Case: [id number] Authorizing Provider: Adrian Tipton Collected: 12/20/2016 1508 Ord ering Location: [facility] Received: 12/20/2016 1601 SERVICES Pathologist: Lev Beth MD Specimen: Nerve, ANTERIOR AND POSTERIOR INTERSSEOUS NERVES SOFT TISSUE, ANTERIOR AND POSTERIOR INTEROSSEOUS REGION, EXCISION: - BENIGN ARTERIAL AND FIBROADIPOSE TISSUE IDENTIFIED [id number] advanced collapsed right wrist, arthritis of carpometacarpal joint of right thumbAnterior and posterior interosseous nervesThe specimen is received in a formalin-filled container labeled with the patient's information and labeled "anterior and posterior interosseous nerves" and consists of two tubular shaped segment of off-white tissue ranging in length from 0.3 0.6 cm and having 0.2 cm in diameter. The spec imen is entirely submitted in A1. CG/ew Performed. POCT-GLUCOSE METER 2016-12-20 11:13:00 POC-GLUCOSE METER (BEAKER) (test oeka=1127) 137 mg/dL 70-110 TESTED AT [facility] [address] [facility] [address] [id number] 14:56:00* Test Item Value Reference Range Comments SODIUM (BEAKER) (test pxnn=465) 136 meq/L 136-145 POTASSIUM (BEAKER) (test kaxl=326) 4.6 meq/L 3.5-5.1 Specimen slightly hemolyzed CHLORIDE (BEAKER) (test zbsp=346) 103 meq/L 98-107 CO2 (BEAKER) (test mkty=664) 25 meq/L 22-29 [id number] 14:56:00* Test Item Value Reference Range Comments GLUCOSE RANDOM (BEAKER) (test wory=148) 125 mg/dL 70-105 Effective 04/29/2014: Reference Range Change-Adult onlyNew: 70-105 Previous: 70-110BUN AND [id number] 14:56:00* Test Item Value Reference Range Comments BLOOD UREA NITROGEN (BEAKER) (test zxsb=348) 18 mg/dL 7-21 CREATININE (BEAKER) (test pvub=370) 1.13 mg/dL 0.57-1.25 Specimen slightly hemolyzed EGFR (STEVENAKER) (test niic=4185) 66 mL/min/1.73 sq m ESTIMATED GFR IS NOT ACCURATE CREATININE CLEARANCE IN PREDICTING GLOMERULAR FILTRATION RATE. ESTIMATED GFR IS NOT APPLICABLE FOR DIALYSIS PATIENTS. [id number] 14:37:00* Test Item Value Reference Range Comments HEMOGLOBIN (WILY) (test uflc=588) 17.1 GM/DL 13.0-16.8
== END 2018-03-22 10:07 | disposition home or self-care (01) ==
LOC: ER 14:20 → ERHOLD 17:16 → IMCU 23:28
PROVIDERS: ADMIT Internal Medicine; ATTEND Internal Medicine
DX: T63.441A Toxic effect of venom of bees, accidental (unintentional), initial encounter (principal); E11.9 Type 2 diabetes mellitus without complications; I10 Essential (primary) hypertension; E66.9 Obesity, unspecified; Z68.43 Body mass index [BMI] 50.0-59.9, adult; Z79.4 Long term (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 insulin
CPT/HCPCS: 36415; 71045; 80053 ×2; 81001; 82550 ×2; 82553 ×2; 83880; 84484 ×2; 85025 ×2; 85379; 85610; 85730; 93005; 94640 ×3; 99284; G0378 ×2; J1200; J2930